=== PATIENT | male | born 1960 | race American Indian/Alaskan Native ===

== ENCOUNTER 2017-10-22 06:21 | Inpatient (IN) | payer MEDICARE, BC ==
[2017-10-22 06:28] VITALS: BMI 38.2
[2017-10-22] MEDS ORDERED: Ropivacaine 0.5% 30ML IV ONE (07:07)
[2017-10-22] MEDS ORDERED: SENSORCAINE 0.5% W/EPINEPHRINE 50ML MDV IJ ONE (07:08)
[2017-10-22] MEDS ORDERED: Rocuronium 10 mg/ml (5 ml) ONE ×2 (07:11→09:49)
[2017-10-22] MEDS ORDERED: Lidocaine 4% (Laryng-O-Jet) Kit MM ONE (07:11)
[2017-10-22] MEDS ORDERED: Succinylcholine 200 mg/10 ml Inj IV ONE (07:11)
[2017-10-22] MEDS ORDERED: Propofol 10 mg/ml Inj (20 ML) ONE ×2 (07:11→11:03)
[2017-10-22] MEDS ORDERED: Phenylephrine 10 mg/ml Inj ONE (07:11)
--- NOTE | 2017-10-22 07:24 | CP.PCM.HP ---
History of Present Illness - History of Present Illness History of Present Illness: CC: scheduled TKR HPI: This is ia 57 y/o male with MHx significant for HTN and mildly elevate cholesterol who comes in for scheduled R TKF for DJD. Denies any CP/SOB/f/c/n/v/ d. Patient has clearance on chart from PCP and cardiology. Patient has no other concerns at this time. ROS: 14 systems reviewed, negative other than HPI MHx: HTN, HLD, DJD SHx: R shoulder, R knee Allergies: NKDA Medications: As per med rec Family Hx: No relevant findings Social Hx: Lives with family, no tobacco, no EtOH Surrogate: , info on chart -- CBC, BMP, UA WNL CXR, EKG WNL Present on Admission - Present on Admission Any Indicators Present on Admission: No Past Patient History - Past Medical History & Family History Past Medical History?: Yes - Past Social History Smoking Status: Never Smoked - CARDIAC Hx Cardiac Disorders: Yes Hx Hypertension: Yes - PULMONARY Hx Respiratory Disorders: Yes Hx Sleep Apnea: Yes - NEUROLOGICAL Hx Neurological Disorder: No - HEENT Hx HEENT Problems: No - RENAL Hx Chronic Kidney Disease: No - ENDOCRINE/METABOLIC Hx Endocrine Disorders: No - HEMATOLOGICAL/ONCOLOGICAL Hx Blood Disorders: No - INTEGUMENTARY Hx Dermatological Problems: No - MUSCULOSKELETAL/RHEUMATOLOGICAL Hx Musculoskeletal Disorders: Yes Hx Back Pain: Yes Hx Osteoarthritis: Yes - GASTROINTESTINAL Hx Gastrointestinal Disorders: No - GENITOURINARY/GYNECOLOGICAL Hx Genitourinary Disorders: No - PSYCHIATRIC Hx Psychophysiologic Disorder: No - SURGICAL HISTORY Hx Surgeries: Yes Hx Arthroscopy: Yes (BILATERAL KNEE.LEFT SHOULDER) Hx Joint Replacement: Yes (TOTAL LEFT KNEE REPLACEMENT 2015) Hx Orthopedic Surgery: Yes (LEFT SHOULDER) - ANESTHESIA Hx Anesthesia: Yes Hx Anesthesia Reactions: No Hx Malignant Hyperthermia: No Has any member of the family had a problem w/ anesthesia?: No Meds Allergies/Adverse Reactions: Allergies Allergy/AdvReac Type Severity Reaction Status Date / Time No Known Allergies Allergy Verified 10/19/17 11:55 Physical Exam - Constitutional Appears: No Acute Distress - Head Exam Head Exam: ATRAUMATIC, NORMOCEPHALIC - Eye Exam Eye Exam: EOMI, PERRL - ENT Exam ENT Exam: Mucous Membranes Moist - Neck Exam Neck exam: Positive for: Full Rom - Respiratory Exam Respiratory Exam: Clear to Auscultation Bilateral, NORMAL BREATHING PATTERN - Cardiovascular Exam Cardiovascular Exam: REGULAR RHYTHM, +S1, +S2 - GI/Abdominal Exam GI & Abdominal Exam: Normal Bowel Sounds, Soft - Extremities Exam Extremities exam: Positive for: full ROM, normal inspection - Neurological Exam Neurological exam: Alert, CN II-XII Intact, Oriented x3 - Psychiatric Exam Psychiatric exam: Normal Affect, Normal Mood - Skin Skin Exam: Dry, Warm Results - Vital Signs Recent Vital Signs: Last Vital Signs Temp 98.5 F 10/22/17 06:45 Pulse 65 10/22/17 06:48 Resp 20 10/22/17 06:45 BP 129/92 H 10/22/17 06:45 Pulse Ox 97 10/22/17 06:45 Assessment & Plan (1) Aftercare following right knee joint replacement surgery Assessment and Plan: 57 y/o male here for R TKR, scheduled. 1) s/p R TKR -Routine aftercare post TKR -Pain mgmt 2) HTN -resume BP medications after surgery 3) DVT PPx -- resume when cleared by orthopedics Status: Acute (2) HTN (hypertension) Status: Acute (3) DVT prophylaxis Status: Acute
[2017-10-22] MEDS ORDERED: Absorbable Gelatin Sponge Size 100 ONE (07:26)
[2017-10-22] MEDS ORDERED: Thrombin Topical 5,000 IU Spray Kit ONE (07:26)
[2017-10-22] MEDS ORDERED: ceFAZolin IV 1 gm in Dextrose 2 GM/100 ML BAG IVPB ONE (07:26)
[2017-10-22] MEDS ORDERED: Lactated Ringer's 1,000 ML IV ONE ×2 (07:55→10:04)
[2017-10-22] MEDS ORDERED: Midazolam 2 MG/2 ML VIAL ONE (08:01)
[2017-10-22] MEDS ORDERED: ceFAZolin IV 1 gm in Dextrose 1 GM/50 ML BAG IVPB ONE (08:40)
[2017-10-22] MEDS ORDERED: Dexamethasone 4 mg/1 ml ONE (08:46)
--- NOTE | 2017-10-22 08:49 | RAD ---
PROCEDURE: Right Knee Radiographs. HISTORY: preop COMPARISON: None. FINDINGS: BONES: Normal. No fracture. JOINTS: Unremarkable. JOINT EFFUSION: None. OTHER FINDINGS: None. IMPRESSION: No demonstrated fracture or dislocation.
[2017-10-22] MEDS ORDERED: Sevoflurane - Inhalation Anesthetic Liq (250 ml) ONE (09:05)
[2017-10-22] MEDS ORDERED: ePHEDrine 50 mg/ml Inj ONE (10:39)
[2017-10-22] MEDS ORDERED: Neostigmine Methylsulfate 2 MG/2 ML ML IV ONE (11:10)
[2017-10-22] MEDS ORDERED: Neostigmine Methylsulfate 3mg/3ml Syringe IV ONE ×2 (11:10→11:42)
[2017-10-22] MEDS ORDERED: HYDROmorphone 0.5 mg/0.5 ml ISec IVP PRN (11:56)
[2017-10-22] MEDS ORDERED: Oxycodone/Acetaminophen 5/325 mg Tab PO PRN (12:24)
--- NOTE | 2017-10-22 13:32 | RAD ---
Indication: Status post right total knee replacement Comparison: Right knee radiographs performed 10/22/17 Two views, right knee Findings: The patient is status post right knee total arthroplasty. Alignment appears satisfactory. Soft tissue swelling, subcutaneous emphysema, and surgical zuly compatible with recent postoperative history Impression: Status post right arthroplasty as above.
[2017-10-22] MEDS: Sodium Chloride 0.9% 1,000 ML IV SCH ×3 (14:56→22:30)
[2017-10-22] MEDS: Lactated Ringer's 1,000 ML IV SCH ×3 (14:56→22:07)
--- NOTE | 2017-10-22 17:12 | PCM.SURG1 ---
Surgeon's Initial Post Op Note - Surgeon's Notes Surgeon: Joyce Porter Sample Case: YOLANDA Mccauley/ 2nd assist Jez Andrea Type of Anesthesia: General Endo, Spinal Anesthesia Administered By: DR Rocha Pre-Operative Diagnosis: tricomparetmental O/A R knee Operative Findings: as above. tricompartmental synovitis. posterior capsular contracture. lateral patella contracture Post-Operative Diagnosis: as above Operation Performed: R TKR. posterior capsular release. lateral patella releaSE. ANTERIOR AND POSTERIOR SYNOVECTOMY. COMPUTER NAVIGATION Specimen/Specimens Removed: cartilage synovium bone Estimated Blood Loss: EBL {In ML}: 50 Blood Products Given: N/A Drains Used: No Drains Post-Op Condition: Good Date of Surgery/Procedure: 10/22/17 Time of Surgery/Procedure: 09:10 (time in room 7:55)
--- NOTE | 2017-10-22 17:31 | PCM.ANESB3 ---
Femoral Nerve Block - Femoral Nerve Block Date of Procedure: 10/22/17 Anesthesiologist: Wilian Pre-Procedure Diagnosis: Right Knee OA Post-Procedure Diagnosis: Same Procedure Performed: Femoral Nerve Block Right - Procedure Femoral Nerve Block: The procedure was explained to the patient that it is for the post-operative pain management. Consent was obtained after a thorough discussion with the patient regarding the benefits and possible complications of local anesthetic block of the femoral nerve at the inguinal crease area. The patient was brought to the operating room and standard monitors were applied. Time-out was held with the circulating nurse to confirm the correct surgery and the appropriate block. Under general anesthesia, patient was placed in supine position with fully extended lower extremities and the ___right groin exposed. The femoral artery was then carefully palpated. The ultrasound transducer was then applied to this area in the transverse plane and the femoral nerve was visualized lateral to the femoral artery and underneath the fascia iliaca. After thorough identification, the inguinal crease area was prepped with Chloraprep. At this point, a #22 gauge Stimuplex 4-inch needle was inserted immediately lateral to the femoral artery pulse at the inguinal crease and advanced perpendicularly. The needle was inserted to the ultrasound transducer in-plane towards the femoral nerve in a [id number] direction. Needle advancement was performed carefully under direct ultrasound visualization. Nerve stimulator was used and twitch of the quadriceps muscle was obtained at current of ___0.4__ MA. After negative aspiration, __2___cc of _0.5____% ___bupivicaine with 1:200, 000 epinephrine was injected and this was followed with ___28__ _ cc of ___0.5____ % bupivicaine with 1:200,000 epinephrine . Under ultrasound guidance the local anesthetics were observed spreading below fascia iliaca and around the femoral nerve. The needle was removed intact. The patient tolerated the femoral nerve block well with stable vital signs and was prepared for subsequent surgery.
--- NOTE | 2017-10-22 17:33 | PCM.ANESB2 ---
Popliteal Nerve Block - Popliteal Nerve Block Date of Procedure: 10/22/17 Anesthesiologist: Wilian Pre-Procedure Diagnosis: Right Knee OA Post-Procedure Diagnosis: Same Procedure Performed: Popliteal Nerve Block Right - Procedure Popliteal Nerve Block: This procedure was explained to the patient that it is for post-operative pain management. Consent was obtained after a thorough discussion with the patient regarding the benefits and possible complications of local anesthetic block of the sciatic nerve at the popliteal level. The patient was brought to the operating room and standard monitors are applied. Time-out was held with the circulating nurse to confirm the correct surgery and the appropriate block. Under general anesthesia, patient's operative leg was gently raised and supported and the groove in between the biceps femoris and vastus lateralis muscles was carefully palpated. The skin approximately 8cm above the popliteal crease was then marked. The ultrasound transducer was then applied to the posterior thigh approximately 8cm above the popliteal crease in the transverse plane and the sciatic nerve before its division was visualized lateral to the popliteal artery and in between the bicep femoris and semimembranosus/ semitendinosus muscles. After identification, the lateral portion of the thigh was prepped withChlorapreo At this point, a # 21 gauge Stimuplex insulated 4 inch needle was inserted into pre-marked area and advanced in a perpendicular direction. The needle was inserted above the ultrasound transducer in-plane towards the sciatic nerve in a [id number] direction. Needle advancement was performed carefully under direct ultrasound visualization. Nerve stimulator was used and dorsiflexion of the __right___ foot was elicited at a current of MA. After repeated negative aspiration, __2___cc of __0.5___ % bupivicaine with 1:200,000 epinephrine was injected and this was flowed with __18____ cc of ___0.5_ __% ____bupivicaine with 1:200,000 epinephrine . Under ultrasound guidance the local anesthetics were observed surrounding sciatic nerve . The needle was removed intact. The patient tolerated the popliteal nerve block well with stable vital signs and was subsequently prepared for the surgery.
[2017-10-22] MEDS: ceFAZolin IV 2 gm in Dextrose 2 GM/50 ML BAG IVPB SCH (18:03)
[2017-10-23] MEDS: ceFAZolin IV 2 gm in Dextrose 2 GM/50 ML BAG IVPB SCH (00:29)
[2017-10-23] MEDS: Lactated Ringer's 1,000 ML IV SCH (05:30)
[2017-10-23 08:06] VITALS: RESP 18
--- NOTE | 2017-10-23 09:13 | CP.PCM.CON ---
History of Present Illness - History of Present Illness History of Present Illness: 57 year old male seen at bedside one day s/p right total knee replacement. Patient states that the pain in his right knee is 7/10 today. He states that he has been urinating regularly but has not had a bowel movement since his surgery. He denies any stomach pain or other symptoms of constipation. Patient states that his appetite has been good since surgery. He denies any recent N/V/F /C/CP/SOB or posterior calf pain. Pt denies any other complaints at this time. PMH: HTN Med: Norvasc 5mg PO daily All: NKDA PSH: LTKR, L shoulder replacement FH: non-contributory SH: Denies alcohol, tobacco or elicit drug use Review of Systems - Review of Systems Review of Systems: ROS unremarkable outside of HPI Past Patient History - Past Medical History & Family History Past Medical History?: Yes - Past Social History Smoking Status: Never Smoked - CARDIAC Hx Cardiac Disorders: Yes Hx Hypertension: Yes - PULMONARY Hx Respiratory Disorders: Yes Hx Sleep Apnea: Yes - NEUROLOGICAL Hx Neurological Disorder: No - HEENT Hx HEENT Problems: No - RENAL Hx Chronic Kidney Disease: No - ENDOCRINE/METABOLIC Hx Endocrine Disorders: No - HEMATOLOGICAL/ONCOLOGICAL Hx Blood Disorders: No - INTEGUMENTARY Hx Dermatological Problems: No - MUSCULOSKELETAL/RHEUMATOLOGICAL Hx Musculoskeletal Disorders: Yes Hx Back Pain: Yes Hx Osteoarthritis: Yes - GASTROINTESTINAL Hx Gastrointestinal Disorders: No - GENITOURINARY/GYNECOLOGICAL Hx Genitourinary Disorders: No - PSYCHIATRIC Hx Psychophysiologic Disorder: No - SURGICAL HISTORY Hx Surgeries: Yes Hx Arthroscopy: Yes (BILATERAL KNEE.LEFT SHOULDER) Hx Joint Replacement: Yes (TOTAL LEFT KNEE REPLACEMENT 2015) Hx Orthopedic Surgery: Yes (LEFT SHOULDER) - ANESTHESIA Hx Anesthesia: Yes Hx Anesthesia Reactions: No Hx Malignant Hyperthermia: No Has any member of the family had a problem w/ anesthesia?: No Meds Allergies/Adverse Reactions: Allergies Allergy/AdvReac Type Severity Reaction Status Date / Time No Known Allergies Allergy Verified 10/19/17 11:55 - Medications Medications: Current Medications Amlodipine Besylate (Norvasc) 5 mg PO DAILY [facility] Aspirin (Ecotrin) 81 mg PO BID [facility] Docusate Sodium (Colace) 100 mg PO BID [facility] Last Admin: 10/22/17 17:33 Dose: 100 mg Hydromorphone HCl (Dilaudid) 0.5 mg IVP Q4 PRN PRN Reason: Pain, severe (8-10) Last Admin: 10/23/17 05:34 Dose: 0.5 mg Lactated Ringer's (Lactated Ringer's) 1,000 mls @ 100 mls/hr IV .Q10H [facility] Last Admin: 10/23/17 05:30 Dose: 100 mls/hr Oxycodone/Acetaminophen (Percocet 5/325 Mg Tab) 2 tab PO Q4 PRN PRN Reason: Pain, moderate (4-7) Stop: 10/25/17 12:25 Last Admin: 10/22/17 20:57 Dose: 2 tab Physical Exam - Constitutional Appears: Well, Non-toxic, No Acute Distress - Extremities Exam Additional comments: Cap refill time to right digits normal CPM intact to right knee Denies calf pain b/l Results - Vital Signs Recent Vital Signs: Last Vital Signs Temp 98.8 F 10/23/17 08:05 Pulse 70 10/23/17 08:05 Resp 18 10/23/17 08:05 BP 118/73 10/23/17 08:05 Pulse Ox 99 10/23/17 08:05 Assessment & Plan - Assessment and Plan (Free Text) Assessment: 57 year old male seen at bedside one day s/p right total knee replacement Plan: 1. Right total knee replacement Patient received right femoral and popliteal nerve block following surgery Xray impression: Right knee arthroplasty Afebrile; incentive spirometer given Continue catheter Continue Colace 100 mg PO bid Continue [employer] pump: Dilaudid 0.5 mg IV q4 prn Continue Percocet 5/325 mg 2 tab PO q4 prn Continue PT/OT Possible DC to [facility] 2. Hypertension BP Continue Norvasc 5 mg PO daily 3. DVT Prophylaxis Denies calf pain Continue Aspirin 81 mg PO bid - Date & Time Date: 10/23/17 Time: 09:51
[2017-10-23] MEDS ORDERED: Oxycodone/Acetaminophen 5/325 mg Tab PO PRN (10:19)
[2017-10-23] MEDS ORDERED: HYDROmorphone 0.5 mg/0.5 ml ISec IVP PRN (10:19)
--- NOTE | 2017-10-23 10:22 | CP.PCM.PN ---
Subjective - Date & Time of Evaluation Date of Evaluation: 10/23/17 Time of Evaluation: 10:20 - Subjective Subjective: Patient states that he is started to be able to move his toes now. He has been using injection for pain but says helps but doesn't take away the pain. Denies CP/SOB/dizziness. Objective - Vital Signs/Intake and Output Vital Signs (last 24 hours): Temp Pulse Resp BP Pulse Ox 98.8 F 70 18 118/73 99 10/23/17 08:05 10/23/17 08:05 10/23/17 08:05 10/23/17 08:05 10/23/17 08:05 - Medications Medications: Current Medications Amlodipine Besylate (Norvasc) 5 mg PO DAILY [facility] Aspirin (Ecotrin) 81 mg PO BID [facility] Docusate Sodium (Colace) [address] [facility] Last Admin: 10/22/17 17:33 Dose: 100 mg Hydromorphone HCl (Dilaudid) 1 mg IVP Q4 PRN PRN Reason: Pain, severe (8-10) Hydromorphone HCl (Dilaudid) 0.5 mg IVP Q4 PRN PRN Reason: Pain, moderate (4-7) Lactated Ringer's (Lactated Ringer's) 1,000 mls @ 100 mls/hr IV .Q10H [facility] Last Admin: 10/23/17 05:30 Dose: 100 mls/hr Oxycodone/Acetaminophen (Percocet 5/325 Mg Tab) 2 tab PO Q4 PRN PRN Reason: Pain, Mild (1-3) Stop: 10/25/17 12:25 - Extremities Exam Additional comments: RLE" +ROM toes, more flexion, still says toes are numb (as expected from block) toes warm +DP pulse patient in NAD, knee immob intact Assessment and Plan (1) Primary osteoarthritis of right knee Assessment & Plan: POD#1 s/p right TKR -PT/OT -VTE proph with aspirin per Dr. Cook -d/c planning to rehab -f/u labs (not drawn) -d/w Dr. Cook, agrees with above Status: Acute
--- NOTE | 2017-10-23 11:10 | CP.PCM.DIS ---
Provider - Provider Date of Admission: 10/22/17 13:29 Attending physician: Loulou Mcelroy MD Primary care physician: Bebeto Cook III, MD Consults: Orthopedics: Dr. Cook Time Spent in preparation of Discharge (in minutes): 30 Hospital Course - Lab Results Lab Results: Most Recent Lab Values Blood Type A POSITIVE 10/22/17 06:40 Antibody Screen Negative 10/22/17 06:40 BBK History Checked No verified bt 10/22/17 06:40 - Hospital Course Hospital Course: 57 year old male patient with PMHx of HTN and OA right knee. Patient was originally admitted through the ED on 10/22/17 for a painful right knee and underwent a total knee replacement to that side on 10/22/17. At present he is stable and cleared by all consultants to be discharged. Patient agrees to discharge planning. Patient is to keep his postoperative dressing clean, dry and intact to right knee until his follow-up appointment with Dr. Cook. 1. Right total knee replacement Patient received right femoral and popliteal nerve block following surgery Xray impression: Right knee arthroplasty Afebrile 2. Hypertension Continue Norvasc 5 mg PO daily 3. DVT Prophylaxis Denies calf pain Continue Aspirin 81 mg PO bid - Date & Time of H&P Date of H&P: 10/23/17 Time of H&P: 11:19 Discharge Exam - Head Exam Head Exam: ATRAUMATIC, NORMAL INSPECTION, NORMOCEPHALIC - Eye Exam Eye Exam: EOMI, PERRL - ENT Exam ENT Exam: Mucous Membranes Moist, Normal Exam - Neck Exam Neck exam: Normal Inspection - Respiratory Exam Respiratory Exam: NORMAL BREATHING PATTERN, UNREMARKABLE - GI/Abdominal Exam GI & Abdominal Exam: Unremarkable - Rectal Exam Rectal Exam: Deferred - Extremities Exam Additional comments: Capillary fill time WNL to right digits Pain proportional to surgery at right knee Denies calf pain - Neurological Exam Neurological exam: Alert, Oriented x3 - Psychiatric Exam Psychiatric exam: Normal Affect, Normal Mood - Skin Skin Exam: Normal Color, Warm Discharge Plan - Follow Up Plan Condition: GOOD Disposition: TRANSF TO SNF Instructions: Knee Replacement (DC), Hypertension (DC), Hypertension (GEN) Additional Instructions: Follow up with referrals Referrals: Bebeto Cook III, MD [Primary Care Provider] -
--- NOTE | 2017-10-23 14:05 | OP ---
PROCEDURE DATE: 10/22/2017 SURGEON: Bebeto Cook MD. BLEACH LIQUOR MAKER: Diana Payton, certified registered nurse SECOND ELDER ASSISTANT: Jez Andrea. TYPE OF ANESTHESIA: General endotracheal/spinal. ANESTHESIA ADMINISTERED BY: Bear Cedeno MD. PREOPERATIVE DIAGNOSES: 1. Tricompartmental osteoarthritis of the right knee. 2. Morbid obesity. OPERATIVE FINDINGS: 1. Tricompartmental osteoarthritis of the right knee, severe with contractures. 2. Tricompartmental synovitis. 3. Posterior capsular contracture. 4. Lateral patellar contracture. 5. Loose body. POSTOPERATIVE DIAGNOSES: 1. Tricompartmental osteoarthritis of the right knee. 2. Tricompartmental synovitis. 3. Posterior capsular contracture. 4. Lateral patellar contracture. 5. Loose body. OPERATION PERFORMED: 1. Right total knee replacement arthroplasty. 2. Arthrotomy, anterior and posterior synovectomy. 3. Posterior capsular release. 4. Arthrotomy and removal of loose bodies. 5. Lateral patellar retinacular release. 6. Computer navigation. SPECIMENS REMOVED: Loose body, cartilage, synovium, and bone. ESTIMATED BLOOD LOSS: 50 mL. BLOOD PRODUCTS GIVEN: None. DRAINS: None. POSTOPERATIVE CONDITION: Stable Jaylen Reilly is a gentleman who has had a contralateral total knee replacement arthroplasty successfully, who now cannot stand the discomfort in the right knee. The patient has not undergone weight loss. He is still morbidly obese with a high BMI of approximately 38. TIME OF SURGERY: Time in the room 0755, incision time 0910. OPERATIVE INDICATIONS: Jaylen Reilly is a 57-year-old gentleman who has undergone successful contralateral left total knee replacement arthroplasty. The patient now presents with severe pain, restricted range of motion to the contralateral right knee. The patient has been refractory to conservative approach consisting of anti-inflammatory medication, activity modification, and therapy. Pros, cons, risks, and benefits of surgical approach were discussed. The possibility of mechanical failure, infection, thromboembolic disease, infection, secondary or tertiary surgery secondary to infection or mechanical failure was discussed. The patient wished the surgery to be accomplished. DESCRIPTION OF PROCEDURE: After having obtained informed consent in the above fashion; after having identified side, site, and procedure, and a critical pause/time-out; after the satisfactory induction of the anesthetic, the patient identified as Jaylen Reilly in the supine position with all bony prominences well padded. The right lower extremity is prepped and free draped in usual fashion for lower extremity surgery. The tourniquet had been applied, but was not yet inflated. After exsanguinating the limb using a 6-inch Esmarch bandage, the tourniquet, which have been applied, is inflated to 350 mmHg. The skin incision was carried down through the skin and subcutaneous tissue. Medial arthrotomy was accomplished. Patella was everted. The knee is flexed. Anterior and posterior cruciate ligaments were excised. Medial and lateral meniscectomies were accomplished. Dissection was carried around posteromedially to the direct head of the semimembranosus tendon. The tibia having been dislocated anteriorly, computer navigation commenced with the anterior strut of the KneeAlign system placed on the anterior aspect of the tibia and affixed with guide pins. The accelerometer and sensor were placed and the offset was set to the posterior aspect of the anterior cruciate ligament insertion. This having been accomplished, the knee center was accomplished, identified as well as the offset. Lateral malleolus was registered. The medial malleolus was registered. The cut was set to 0 degrees varus-valgus, 3.5 degrees posterior slope. The cut was set at 8 mm below the more prominent condyle. The tibial osteotomy was accomplished. The tibia was sized to a #5 sphere Medacta tibial component. After preparation and cutting of the tibia 2 mm below the more prominent side, the proximal tibia having been cut, guidance to rotation of the lateral aspect of the tibial condyle, mid malleolar axis, and medial third of the tibial tuberosity. The proximal tibia was punched and prepared for a stem component because of the patient's size. Attention was turned to the femur. Notch osteophytes and border osteophytes were debrided with a curved osteotome and bur. This having been accomplished, the guide pin for the computer navigation device, passive robotic device, was accomplished above the intercondylar notch. The distal cutting guide was placed. The distal cutting guide was fixed with pins. The accelerometer was placed as was the sensor. Varus-valgus was set to 0 degrees varus-valgus on the distal cut and 0.5 degrees posterior slope. This having been accomplished, the hip center was identified and registered. The offset was registered as well for the distal femoral cutting guide positioning. Again, the positioning of the cut was 0 degrees varus-valgus on the mechanical axis and 0.5 degrees of flexion. The distal cut was set to 9 mm as the girth of the distal femoral condyles of the component. The distal cut was accomplished with precision offered by an [facility] retractor, keeping the blade relatively fixed to the bony cut surface. It should be noted at this point in time, the anterior and posterior synovectomy had been accomplished to identify the anterior aspect of the femur and to eliminate inflammatory tissue. The #5 femoral component, Medacta was employed and placed across the epicondylar axis after the distal cut was accomplished. The 4-in-1 block was placed. Anterior and posterior osteotomies were accomplished as well as chamfer cuts. There was found be a definite posterior capsular contracture. Anterior and posterior synovectomy having been accomplished, the lamina medical physics professor was placed and the posterior capsule was elevated. There was found to be a posterior capsular contracture with severe osteophytes on the medial aspect. The osteophytes were debrided with a curved osteotome and the posterior capsule was released. Femoral trial was placed and the lugs were drilled. At this point in time, the femoral trochlear guide was fixed in the appropriate attitude. Reaming was accomplished. At this point in time, trialing was accomplished with a #6 femoral component, #4 tibial tray, and an 11 mm but then a 14 mm polyethylene; 14 mm polyethylene was found to have excellent flexion-extension balance. The knee attained full extension. Attention was turned to the patella. Patella girth was 33 mm. Freehand patella osteotomy was accomplished and the patella was templated to a #4 Medacta patellar component. It should be noted that the lateral patellar retinacular release at this point in time was accomplished because of a contracture of the lateral patellar retinaculum from inside out. Aquamantys was used to control the bleeding from the synovium and the lateral retinaculum. Great care was taken to spare the superior lateral genicular vessels. The patella was placed. Flexion-extension balance again found to be excellent without instability. Patella balance was found to be excellent with no evidence of luxation. Trialing having been accomplished and successful, the femur, tibia, and patella were prepared with the Pulsavac, and a #5 cemented femoral component was applied with a #5 cemented tibial tray, 14 mm polyethylene which was affixed with compression and the screws placed in the polyethylene. A #4 Medacta patellar component was cemented. Wound was thoroughly irrigated. Tourniquet was deflated. Hemostasis was controlled with the Aquamantys. Blood loss was approximately 50 mL. Closures in layers with #1 Vicryl, 0 Vicryl, 2-0 Vicryl, and zuly to skin. No Hemovac drain was employed. Michael Reilly compression dressing and knee immobilizers were applied over an Aquacel dressing. Again, postoperative flexion-extension balance was found be excellent even with the wound closed as well as with patella balance. Postoperative x-rays revealed acceptable position of the construct. It should be noted that nursing cafe assistant, Diana Payton, was essential to the completion of the procedure. Bebeto Cook MD
--- NOTE | 2017-10-23 15:18 | CP.PCM.PN ---
Subjective - Date & Time of Evaluation Date of Evaluation: 10/23/17 Time of Evaluation: 08:00 - Subjective Subjective: 57 year old male seen at bedside one day s/p right total knee replacement. Patient states that the pain in his right knee is 7/10 today. He states that he has been urinating regularly but has not had a bowel movement since his surgery. He denies any stomach pain or other symptoms of constipation. Patient states that his appetite has been good since surgery. He denies any recent N/V/F /C/CP/SOB or posterior calf pain. Pt denies any other complaints at this time. Previous plan to discharge patient today has been changed. New plan is for patient to be discharged on Thursday 10/25. PMH: HTN Med: Norvasc 5mg PO daily All: NKDA PSH: LTKR, L shoulder replacement FH: non-contributory SH: Denies alcohol, tobacco or elicit drug use Objective - Vital Signs/Intake and Output Vital Signs (last 24 hours): Temp Pulse Resp BP Pulse Ox 98.8 F 70 18 145/83 99 10/23/17 08:05 10/23/17 10:39 10/23/17 08:05 10/23/17 10:39 10/23/17 08:05 - Medications Medications: Current Medications Amlodipine Besylate (Norvasc) 5 mg PO DAILY [facility] Last Admin: 10/23/17 10:39 Dose: 5 mg Aspirin (Ecotrin) 81 mg PO BID [facility] Last Admin: 10/23/17 10:37 Dose: 81 mg Docusate Sodium (Colace) 100 mg PO BID [facility] Last Admin: 10/23/17 10:36 Dose: 100 mg Hydromorphone HCl (Dilaudid) 1 mg IVP Q4 PRN PRN Reason: Pain, severe (8-10) Hydromorphone HCl (Dilaudid) 0.5 mg IVP Q4 PRN PRN Reason: Pain, moderate (4-7) Oxycodone/Acetaminophen (Percocet 5/325 Mg Tab) 2 tab PO Q4 PRN PRN Reason: Pain, Mild (1-3) Stop: 10/25/17 12:25 Last Admin: 10/23/17 13:35 Dose: 2 tab - Constitutional Appears: Well, Non-toxic, No Acute Distress - Head Exam Head Exam: ATRAUMATIC, NORMAL INSPECTION, NORMOCEPHALIC - Eye Exam Eye Exam: EOMI, Normal appearance, PERRL Pupil Exam: NORMAL ACCOMODATION, PERRL - ENT Exam ENT Exam: Mucous Membranes Moist, Normal Exam - Neck Exam Neck Exam: Normal Inspection. absent: Tenderness - Respiratory Exam Respiratory Exam: Clear to Ausculation Bilateral. absent: Rales, Rhonchi, Wheezes - Cardiovascular Exam Cardiovascular Exam: REGULAR RHYTHM - GI/Abdominal Exam GI & Abdominal Exam: Normal Bowel Sounds. absent: Distended, Guarding, Rigid, Tenderness - Rectal Exam Rectal Exam: Deferred - Extremities Exam Extremities Exam: Normal Capillary Refill Additional comments: Pain appropriate for postoperative state appreciated - Neurological Exam Neurological Exam: Alert, Awake, Oriented x3 - Psychiatric Exam Psychiatric exam: Normal Affect, Normal Mood - Skin Skin Exam: Intact, Normal Color, Warm Assessment and Plan - Assessment and Plan (Free Text) Assessment: 57 year old male seen at bedside one day s/p right total knee replacement Plan: 1. Right total knee replacement Patient received right femoral and popliteal nerve block following surgery Xray impression: Right knee arthroplasty Afebrile; incentive spirometer given Continue catheter Continue Colace 100 mg PO bid Continue TRAUMA COORDINATOR pump: Dilaudid 0.5 mg IV q4 prn Continue Percocet 5/325 mg 2 tab PO q4 prn Continue PT/OT Possible DC to [facility] 2. Hypertension BP 11/73 Continue Norvasc 5 mg PO daily 3. DVT Prophylaxis Denies calf pain Continue Aspirin 81 mg PO bid
[2017-10-23 16:05] VITALS: BP 125/77; PULSE 75; TEMP 99.1; O2SAT 98
== END 2017-10-23 20:07 | DRG 470 ==
LOC: H.OPSURG 06:21 → H.MEDSURG1 13:29
PROVIDERS: ADMIT Internal Medicine; ATTEND Internal Medicine
PROC: 0SRC0J9 Replacement of Right Knee Joint with Synthetic Substitute, Cemented, Open Approach (ICD-10-PCS; principal; 2017-10-22 07:45)
PROC: 0SBC0ZZ Excision of Right Knee Joint, Open Approach (ICD-10-PCS; 2017-10-22 07:45)
PROC: 3E0T3BZ Introduction of Anesthetic Agent into Peripheral Nerves and Plexi, Percutaneous Approach (ICD-10-PCS; 2017-10-22 07:45)
DX: M17.11 Unilateral primary osteoarthritis, right knee (principal); E66.01 Morbid (severe) obesity due to excess calories; M54.9 Dorsalgia, unspecified; M65.9 Synovitis and tenosynovitis, unspecified; Z79.899 Other long term (current) drug therapy; Z96.652 Presence of left artificial knee joint; G47.30 Sleep apnea, unspecified; I10 Essential (primary) hypertension

== ENCOUNTER 2018-09-27 06:06 | Inpatient (IN) | payer MEDICARE, BC ==
[2018-09-21 14:15] VITALS: BMI 39.0
--- NOTE | 2018-09-27 06:51 | CP.PCM.HP ---
History of Present Illness - History of Present Illness History of Present Illness: Orthopedist: Dr Cook Chief Complaint: Left shoulder pain The patient was seen and examinede in the SDS Unit HPI: This is a 58 years old male with hx of HTN, Sleep apnea and Osteoarthritis with left shoulder pain. He had a left rotator cuff repair years ago. At present he considers that the left shoulder has failed conservative management and he has decided on a surgical treatment. No complaints of SOB, Chest pain, Palpitation, cough dysuria nor diarrhea. PMH: HTN; Sleep Apnea; Left shoulder Osteoarhritis with DJD PSH: Left shoulder rotator cuff repair; Bilateral Total knee replacement SH: Never smoked, No alcohol; No illegal drug use; Live with the family FH: State: No known family hx Allergids: NKDA Medication: Reviewed Surrogate: , info on chart Present on Admission - Present on Admission Any Indicators Present on Admission: No History of DVT/PE: No History of Uncontrolled Diabetes: No Urinary Catheter: No Decubitus Ulcer Present: No Review of Systems - Constitutional Constitutional: absent: Anorexia, Chills, Fever, Lethargy - EENT Eyes: absent: Blurred Vision, Floaters, Requires Corrective Lenses Ears: absent: Decreased Hearing, Ear Discharge, Tinnitus Nose/Mouth/Throat: absent: Epistaxis, Nasal Congestion, Nasal Discharge, Sinus Pain, Sinus Pressure - Cardiovascular Cardiovascular: absent: Chest Pain, Dyspnea, Edema - Respiratory Respiratory: absent: Cough, Dyspnea, Wheezing, Stridor - Gastrointestinal Gastrointestinal: absent: Abdominal Pain, Constipation, Diarrhea, Nausea, Vomiting - Genitourinary Genitourinary: absent: Dysuria, Flank Pain, Urinary Frequency - Musculoskeletal Musculoskeletal: Arthralgias. absent: Joint Swelling, Muscle Weakness - Integumentary Integumentary: absent: Pruritus, Rash, Skin Ulcer, Sores, Swelling - Neurological Neurological: absent: Confusion, Dizziness, Weakness - Psychiatric Psychiatric: absent: Anxiety, Depression - Endocrine Endocrine: absent: Palpitations, Polydipsia, Polyphagia, Polyuria - Hematologic/Lymphatic Hematologic: absent: Easy Bleeding, Easy Bruising Past Patient History - Past Medical History & Family History Past Medical History?: Yes - Past Social History Smoking Status: Never Smoked Chewing Tobacco Use: No Cigar Use: No Alcohol: None Drugs: Denies Home Situation {Lives}: With Family - CARDIAC Hx Cardiac Disorders: Yes Hx Hypertension: Yes - PULMONARY Hx Respiratory Disorders: Yes Hx Sleep Apnea: Yes - NEUROLOGICAL Hx Neurological Disorder: No - HEENT Hx HEENT Problems: No - RENAL Hx Chronic Kidney Disease: No - ENDOCRINE/METABOLIC Hx Endocrine Disorders: No - HEMATOLOGICAL/ONCOLOGICAL Hx Blood Disorders: No - INTEGUMENTARY Hx Dermatological Problems: No - MUSCULOSKELETAL/RHEUMATOLOGICAL Hx Musculoskeletal Disorders: Yes Hx Back Pain: Yes Hx Osteoarthritis: Yes - GASTROINTESTINAL Hx Gastrointestinal Disorders: No - GENITOURINARY/GYNECOLOGICAL Hx Genitourinary Disorders: No - PSYCHIATRIC Hx Psychophysiologic Disorder: No - SURGICAL HISTORY Hx Surgeries: Yes Hx Arthroscopy: Yes (BILATERAL KNEE.LEFT SHOULDER) Hx Joint Replacement: Yes (TOTAL LEFT KNEE REPLACEMENT 2015) Hx Orthopedic Surgery: Yes (LEFT SHOULDER) - ANESTHESIA Hx Anesthesia: Yes Hx Anesthesia Reactions: No Hx Malignant Hyperthermia: No Meds Allergies/Adverse Reactions: Allergies Allergy/AdvReac Type Severity Reaction Status Date / Time No Known Allergies Allergy Verified 10/19/17 11:55 Physical Exam - Constitutional Appears: No Acute Distress - Head Exam Head Exam: ATRAUMATIC, NORMAL INSPECTION, NORMOCEPHALIC - Eye Exam Eye Exam: EOMI, Normal appearance Pupil Exam: NORMAL ACCOMODATION, PERRL - ENT Exam ENT Exam: Mucous Membranes Moist, Normal Exam, Normal External Ear Exam - Neck Exam Neck exam: Positive for: Full Rom, Normal Inspection. Negative for: Lymphadenopathy, Tenderness - Respiratory Exam Respiratory Exam: Clear to Auscultation Bilateral. absent: Rales, Rhonchi, Wheezes - Cardiovascular Exam Cardiovascular Exam: REGULAR RHYTHM, RRR, +S1, +S2. absent: Gallop - GI/Abdominal Exam GI & Abdominal Exam: Normal Bowel Sounds, Soft. absent: Mass, Organomegaly - Rectal Exam Rectal Exam: Deferred - Extremities Exam Extremities exam: Positive for: normal inspection. Negative for: pedal edema Additional comments: Left shoulder tender on full flexion - Back Exam Back exam: NORMAL INSPECTION. absent: CVA tenderness (L), CVA tenderness (R) - Neurological Exam Neurological exam: Alert, CN II-XII Intact, Oriented x3, Reflexes Normal - Psychiatric Exam Psychiatric exam: Normal Affect, Normal Mood - Skin Skin Exam: Dry, Normal Color, Warm Results - Vital Signs Recent Vital Signs: Last Vital Signs Temp 98 F 09/27/18 06:40 Pulse 62 09/27/18 06:43 Resp 20 09/27/18 06:40 BP 143/95 H 09/27/18 06:40 Pulse Ox 96 09/27/18 06:40 - Labs Result Diagrams: 09/27/18 07:25 Assessment & Plan - Assessment and Plan (Free Text) Plan: 58 years old male with hx of HTN, Sleep apnea and Osteoarthritis with left shou lder pain. He had a left rotator cuff repair years ago. At present he considers that the left shoulder has failed conservative management and he has decided on a surgical treatment. No complaints of SOB, Chest pain, Palpitation, cough dysuria nor diarrhea. #. Left Shoulder Osteoarthritis - Consult Dr Cook The Orthopedist - Orthopedic management - Pain management - PT/OT #. HTN - Amlodipine - Monitor blood Pressure #. DVT prophylaxis with Lovenox from 09/28/18 #. Code Status: Full The patient was cleared for surgery by his PMD After the History and Physical and review of the medical records I clear this patient for surgery with mild to moderate cardiac risks. Sekou Cary MD - Date & Time Date: 09/27/18 Time: 06:51
[2018-09-27] MEDS ORDERED: Lactated Ringer's 1,000 ML IV ONE ×2 (07:25→09:26)
[2018-09-27 07:35] LABS: BASO % 0.6 % (0.0-2.0); EOS # 0.2 K/uL (0.0-0.7); EOS % 3.3 % (0.0-4.0); HEMOGLOBIN 12.3 g/dL (12.0-18.0); LYMPH # 1.2 K/uL (1.0-4.3); LYMPH % 22.7 % (20.0-40.0); MEAN CORPUSCULAR HEMOGLOBIN 27.1 pg (27.0-31.0); MEAN CORPUSCULAR HGB CONC 31.9 g/dL (33.0-37.0); MEAN PLATELET VOLUME 8.4 fl (7.2-11.7); MONO # 0.5 K/uL (0.0-0.8); MONO % 10.4 % (0.0-10.0); NEUT # 3.2 K/uL (1.8-7.0); RBC 4.52 Mil/uL (4.40-5.90); RED CELL DISTRIBUTION WIDTH 13.9 % (11.5-14.5); WHITE BLOOD COUNT 5.1 K/uL (4.8-10.8)
--- NOTE | 2018-09-27 07:37 | CP.PCM.CON ---
History of Present Illness - History of Present Illness History of Present Illness: Orthopedic consult: Dr. Cook Patient is a 58 y/o RHD male with PMH of HTN and sleep apnea who presents for elective L TSR today. The patient has had chronic L shoulder pain for many years which has progressively worsened. The pain has hindering his daily activities including overhead reaching and lifting. The pain is dull, intermittent but daily. He has had a rotator cuff repair performed by Dr. Cook in the past. He denies any radiation of pain/numbness/tingling. He also denies CP/SOB/N/V/D/fever/dysuria/melena. Review of Systems - Review of Systems All systems: reviewed and no additional remarkable complaints except Review of Systems: as per HPI Past Patient History - Past Medical History & Family History Past Medical History?: Yes Past Family History: Reviewed and not pertinent - Past Social History Smoking Status: Never Smoked Alcohol: None Drugs: Denies - CARDIAC Hx Cardiac Disorders: Yes Hx Hypertension: Yes - PULMONARY Hx Respiratory Disorders: Yes Hx Sleep Apnea: Yes - NEUROLOGICAL Hx Neurological Disorder: No - HEENT Hx HEENT Problems: No - RENAL Hx Chronic Kidney Disease: No - ENDOCRINE/METABOLIC Hx Endocrine Disorders: No - HEMATOLOGICAL/ONCOLOGICAL Hx Blood Disorders: No - INTEGUMENTARY Hx Dermatological Problems: No - MUSCULOSKELETAL/RHEUMATOLOGICAL Hx Musculoskeletal Disorders: Yes Hx Back Pain: Yes Hx Osteoarthritis: Yes - GASTROINTESTINAL Hx Gastrointestinal Disorders: No - GENITOURINARY/GYNECOLOGICAL Hx Genitourinary Disorders: No - PSYCHIATRIC Hx Psychophysiologic Disorder: No - SURGICAL HISTORY Hx Surgeries: Yes Hx Arthroscopy: Yes (BILATERAL KNEE.LEFT SHOULDER) Hx Joint Replacement: Yes (TOTAL LEFT KNEE REPLACEMENT 2015) Hx Orthopedic Surgery: Yes (LEFT SHOULDER) - ANESTHESIA Hx Anesthesia: Yes Hx Anesthesia Reactions: No Hx Malignant Hyperthermia: No Meds Allergies/Adverse Reactions: Allergies Allergy/AdvReac Type Severity Reaction Status Date / Time No Known Allergies Allergy Verified 10/19/17 11:55 - Medications Medications: Norvasc Physical Exam - Constitutional Appears: Well, No Acute Distress - Head Exam Head Exam: ATRAUMATIC, NORMOCEPHALIC - Eye Exam Eye Exam: EOMI, Normal appearance, PERRL - ENT Exam ENT Exam: Mucous Membranes Moist - Respiratory Exam Respiratory Exam: Clear to Auscultation Bilateral, NORMAL BREATHING PATTERN - Cardiovascular Exam Cardiovascular Exam: +S1, +S2 - GI/Abdominal Exam GI & Abdominal Exam: Soft. absent: Tenderness - Extremities Exam Additional comments: L shoulder: No swelling, no erythema, no masses old arthroscopic and saber incision well healed ROM limited 2nd to pain sensation and motor intact AXN/MN/UN/RN radial pulse intact Results - Vital Signs Recent Vital Signs: Last Vital Signs Temp 98 F 09/27/18 06:40 Pulse 62 09/27/18 06:43 Resp 20 09/27/18 06:40 BP 143/95 H 09/27/18 06:40 Pulse Ox 96 09/27/18 06:40 Assessment & Plan (1) Primary osteoarthritis, left shoulder Assessment and Plan: -OR today for L TSR with Dr. Cook -NPO -Admit to Hospitalist -Risks/benefits/alteranatives explained to patient who understands and agrees to proceed with procedure above -Above d/w Dr. Cook in agreement Status: Acute
[2018-09-27] MEDS ORDERED: Propofol 10 mg/ml Inj (20 ML) ONE (07:46)
[2018-09-27] MEDS ORDERED: Rocuronium 10 mg/ml (5 ml) ONE ×2 (07:46→09:16)
[2018-09-27] MEDS ORDERED: Succinylcholine 200 mg/10 ml Inj IV ONE (07:46)
[2018-09-27] MEDS ORDERED: Etomidate 20 mg/10ml Inj IV ONE (07:47)
[2018-09-27] MEDS ORDERED: Bupivacaine HCl 0.5% PF (30 ml) Inj ONE (07:50)
[2018-09-27] MEDS ORDERED: EPINEPHrine 1 mg/ml (1:1000) Inj ONE ×2 (07:50→08:44)
[2018-09-27] MEDS ORDERED: Lidocaine 2% MPF (5 ml) Inj ONE (07:54)
[2018-09-27] MEDS ORDERED: Dexamethasone 4 mg/1 ml ONE (07:54)
[2018-09-27] MEDS ORDERED: Midazolam 2 MG/2 ML VIAL ONE (08:13)
[2018-09-27] MEDS ORDERED: EPINEPHrine 1 mg/ml (1:1000) Inj IV ONE (08:34)
[2018-09-27] MEDS ORDERED: Sevoflurane - Inhalation Anesthetic Liq (250 ml) ONE (09:54)
[2018-09-27] MEDS ORDERED: ePHEDrine 50 mg/ml Inj ONE (10:04)
[2018-09-27] MEDS ORDERED: Neostigmine 1:1000 (1 mg/ml) Inj ONE (11:36)
[2018-09-27] MEDS ORDERED: HYDROmorphone 0.5 mg/0.5 ml ISec IVP PRN (12:16)
--- NOTE | 2018-09-27 12:21 | PCM.ANESB1 ---
Interscalene Block - Brachial Plexus Date of Procedure: 09/27/18 Anesthesiologist: Wilian Pre-Procedure Diagnosis: Left Shoulder OA Post-Procedure Diagnosis: Same Procedure Performed: Interscalene Block of Brachial Plexus Left - Procedure Interscalene Block of Brachial Plexus: This procedure was explained to the patient that it is for post-operative pain management. Consent was obtained after a thorough discussion with the patient regarding the benefits and possible complications of local anesthetic block of the Brachial Plexus at the Interscalene area. The patient was brought to the Operating Room and standard monitors were applied. Time out was held with the circulating nurse to confirm the correct surgery and appropriate block. After applying Oxygen by nasal cannula and administering IV Sedation, the patient's head was gently rotated away from the __left____operative shoulder and the anterior scalene groove was carefully palpated. The ultrasound transducer was then applied to the skin in the transverse plane and the brachial plexus was visualized lateral to the carotid artery and in between the anterior and middle scalene muscles. After identification,the anterior lateral portion of the neck was prepped with Chloraprep and Lidocaine 1% was injected subcutaneously for topical analgesia. At this point, a # 22 gauge Stimuplex 2 inches insulated needle was inserted into the interscalene groove and directed in a caudal and midline direction. The needle was inserted lateral to the ultrasound transducer in-plane towards the brachial plexus in a [id number] direction. Needle advancement was performed carefully under direct ultrasound visualization. Nerve stimulator was used and twitched of the affected extremity including the hand brachialis muscles, biceps and the deltoid was obtained at a current of __0.4___MA. After repeated negative aspiration,__2___cc of_0.5%____, bupivacaine with 1:200,000 epinephrine were injected and this was followed with _28____cc of __0.5___% ___bupivacaine with 1:200,000 epinephrine . Under ultrasound guidance the local anesthetics were observed surrounding the roots of the brachial plexus. The needle was removed intact. The patient had stable vital signs, was conscious and in no apparent distress. The patient tolerated the interscalene block of the bracheal plexus well with stable vital signs and was prepared for subsequent surgery.
[2018-09-27] MEDS ORDERED: Oxycodone/Acetaminophen 5/325 mg Tab PO PRN (12:36)
[2018-09-27] MEDS: Lactated Ringer's 1,000 ML IV SCH (12:36)
[2018-09-27] MEDS ORDERED: Sodium Chloride 0.9% 1,000 ML IV SCH (12:45)
--- NOTE | 2018-09-27 12:57 | PCM.SURG1 ---
Surgeon's Initial Post Op Note - Surgeon's Notes Surgeon: Shiv Cook MD Staff Counsel: Nikolas Lee PA-C Type of Anesthesia: General Endo Anesthesia Administered By: Dr. Cedeno Pre-Operative Diagnosis: Left shoulder DJD Operative Findings: same Post-Operative Diagnosis: same Operation Performed: 1. Left reverse total shoulder replacement. 2. Rotator cuff repair, open. 3. Biceps tenodesis Specimen/Specimens Removed: humeral head Estimated Blood Loss: EBL {In ML}: 120 Blood Products Given: N/A Drains Used: No Drains Post-Op Condition: Fair Date of Surgery/Procedure: 09/27/18 Time of Surgery/Procedure: 12:57
--- NOTE | 2018-09-27 14:12 | RAD ---
Date of service: 09/27/2018 PROCEDURE: Radiographs of the Left Shoulder HISTORY: pt in pacu s/p total shoulder COMPARISON: No prior. FINDINGS: BONES: Patient status post left shoulder arthroplasty with proximal humeral as well as glenoid prosthetic components identified in position. Skin zuly noted superolaterally limited postoperative soft tissue changes are related. Bony loss of the distal segment of the left clavicle is identified, likely on a chronic basis. JOINTS: As above. SOFT TISSUES: As above. OTHER FINDINGS: None. IMPRESSION: Status post left shoulder arthroplasty. No definite dislocation or acute fracture appreciated.
[2018-09-27] MEDS: ceFAZolin 2 GM in Sodium Chloride 0.9% 100 ML IVPB SCH ×2 (16:43→23:46)
[2018-09-27 18:42] VITALS: RESP 19
--- NOTE | 2018-09-27 19:54 | CP.PCM.PCO ---
Assessment/Plan - Assessment and Plan (Free Text) Assessment: S: Patient seen and examined s/p surgery, POD#0, s/p left shoulder replacement. Patient denies any pain, tolerating PO diet, voiding freely, has not ambulated yet. denies any chest pain, SOB, dizziness, abdominal pain or urinary symptoms. O: VS reviewed, Afebrile PE: AAOx3, upright on bed, NAD, CV: RRR, Pulm: CTBL, Left UE in shoulder immobilizer, moving his fingers w/o pain A/P: 58 y/o male, POD#0, s/p left shoulder replacement - C/w pain management - Encourage PO intake, ambulation - Follow up ortho recommendation - C/w Abx, next, 2nd dose at midnight - Incentive spirometer - DVT ppx - Possible discharge after Abx --- Uyen Alcocer, PGY- II
[2018-09-28 00:53] VITALS: O2SAT 96
[2018-09-28 08:00] VITALS: BP 112/77; PULSE 81; TEMP 98.1
--- NOTE | 2018-09-28 08:03 | CP.PCM.PN ---
Subjective - Date & Time of Evaluation Date of Evaluation: 09/28/18 Time of Evaluation: 07:30 - Subjective Subjective: Patient seen and examined at bedside comfortable. Pain is well controlled. No acute events overnight. Denies CP/SOB/fever/CASANOVA. Objective - Vital Signs/Intake and Output Vital Signs (last 24 hours): Temp Pulse Resp BP Pulse Ox 98.1 F 81 19 112/77 96 09/28/18 08:00 09/28/18 08:00 09/28/18 08:00 09/28/18 08:00 09/28/18 08:00 - Medications Medications: Current Medications Amlodipine Besylate (Norvasc) 5 mg PO DAILY [facility] Docusate Sodium (Colace) 100 mg PO BID [facility] Last Admin: 09/27/18 16:43 Dose: 100 mg Hydralazine HCl (Apresoline) 5 mg IV Q15MIN PRN PRN Reason: Hypertension Hydromorphone HCl (Dilaudid) 1 mg IVP Q4 PRN PRN Reason: Pain, severe (8-10) Lactated Ringer's (Lactated Ringer's) 1,000 mls @ 100 mls/hr IV .Q10H [facility] Last Admin: 09/27/18 12:36 Dose: 50 mls Sodium Chloride (Sodium Chloride 0.9%) 1,000 mls @ 100 mls/hr IV .Q10H [facility] Stop: 09/28/18 08:44 Last Admin: 09/27/18 23:46 Dose: 100 mls/hr Oxycodone/Acetaminophen (Percocet 5/325 Mg Tab) 2 tab PO Q4 PRN PRN Reason: Pain, severe (8-10) Stop: 09/30/18 12:37 Last Admin: 09/28/18 05:09 Dose: 2 tab - Labs Labs: 09/27/18 07:25 - Extremities Exam Additional comments: L shoulder: mild swelling and tenderness 2nd to surgery aquacel dressings CDI shoulder immobilizer in place sensation and motor intact AXN/MN/UN/RN radial pulse intact comps soft NT Assessment and Plan (1) Primary osteoarthritis, left shoulder Assessment & Plan: POD# 1 s/p L reverse TSR doing well -PT/OT NWB LUE -pain control -no DVT ppx needed -keep in shoulder immobilizer -dressings changed -orthopedically stable for discharge home today -f/u in office with 7-10 days -above d/w Dr. Cook in agreement Status: Acute
[2018-09-28 08:14] LABS: HEMOGLOBIN 10.9 g/dL (12.0-18.0); MEAN CORPUSCULAR HEMOGLOBIN 27.6 pg (27.0-31.0); MEAN CORPUSCULAR HGB CONC 31.7 g/dL (33.0-37.0); RBC 3.94 Mil/uL (4.40-5.90); RED CELL DISTRIBUTION WIDTH 13.8 % (11.5-14.5); WHITE BLOOD COUNT 9.9 K/uL (4.8-10.8)
[2018-09-28 08:26] LABS: BLOOD UREA NITROGEN 18 mg/dl (9-20); CALCIUM 8.7 mg/dL (8.4-10.2); GFR NON-AFRICAN AMERICAN > 60
[2018-09-28] MEDS ORDERED: Enoxaparin 40 mg Syringe SC SCH (09:00)
[2018-09-28] MEDS: Lactated Ringer's 1,000 ML IV SCH (09:24)
--- NOTE | 2018-09-28 10:19 | CP.PCM.DIS ---
<Acosta Abernathy - Last Filed: 09/28/18 13:57> Provider - Provider Date of Admission: 09/27/18 08:06 Attending physician: Sekou Cary Primary care physician: Bebeto Cook III, MD Time Spent in preparation of Discharge (in minutes): 30 Diagnosis - Discharge Diagnosis (1) Primary osteoarthritis, left shoulder Status: Acute Hospital Course - Lab Results Lab Results: Most Recent Lab Values WBC 9.9 K/uL (4.8-10.8) D 09/28/18 08:01 RBC 3.94 Mil/uL (4.40-5.90) L 09/28/18 08:01 Hgb 10.9 g/dL (12.0-18.0) L 09/28/18 08:01 Hct 34.3 % (35.0-51.0) L 09/28/18 08:01 MCV 87.0 fl (80.0-94.0) D 09/28/18 08:01 MCH 27.6 pg (27.0-31.0) 09/28/18 08:01 MCHC 31.7 g/dL (33.0-37.0) L 09/28/18 08:01 RDW 13.8 % (11.5-14.5) 09/28/18 08:01 Plt Count 200 K/uL (130-400) 09/28/18 08:01 MPV 8.4 fl (7.2-11.7) 09/27/18 07:25 Neut % (Auto) 63.0 % (50.0-75.0) 09/27/18 07:25 Lymph % (Auto) 22.7 % (20.0-40.0) 09/27/18 07:25 Reynolds % (Auto) 10.4 % (0.0-10.0) H 09/27/18 07:25 Eos % (Auto) 3.3 % (0.0-4.0) 09/27/18 07:25 Baso % (Auto) 0.6 % (0.0-2.0) 09/27/18 07:25 Neut # (Auto) 3.2 K/uL (1.8-7.0) 09/27/18 07:25 Lymph # (Auto) 1.2 K/uL (1.0-4.3) 09/27/18 07:25 Reynolds # (Auto) 0.5 K/uL (0.0-0.8) 09/27/18 07:25 Eos # (Auto) 0.2 K/uL (0.0-0.7) 09/27/18 07:25 Baso # (Auto) 0.0 K/uL (0.0-0.2) 09/27/18 07:25 Sodium 139 mmol/l (132-148) 09/28/18 08:01 Potassium 4.5 MMOL/L (3.6-5.0) 09/28/18 08:01 Chloride 105 mmol/L (98-107) 09/28/18 08:01 Carbon Dioxide 28 mmol/L (22-30) 09/28/18 08:01 Anion Gap 11 (10-20) 09/28/18 08:01 BUN 18 mg/dl (9-20) 09/28/18 08:01 Creatinine 1.1 mg/dl (0.8-1.5) 09/28/18 08:01 Est GFR ( Amer) > 60 09/28/18 08:01 Est GFR (Non-Af Amer) > 60 09/28/18 08:01 Random Glucose 121 mg/dL (75-110) H 09/28/18 08:01 Calcium 8.7 mg/dL (8.4-10.2) 09/28/18 08:01 Blood Type A POSITIVE 09/27/18 07:25 Antibody Screen Negative 09/27/18 07:25 Crossmatch See Detail 09/27/18 07:25 BBK History Checked Patient has bt 09/27/18 07:25 - Hospital Course Hospital Course: 58 y/o male with history of left shoulder osteoarthritis admitted for total left shoulder repair. Pt under went repair on 09/28/2018 and tolerated well. No acute events overnight. Pain controlled. Evaluated by PT. After an uneventful hospital stay the pt was discharged in stable condition. Discharge Exam - Head Exam Head Exam: ATRAUMATIC, NORMAL INSPECTION, NORMOCEPHALIC - Eye Exam Eye Exam: EOMI, PERRL - ENT Exam ENT Exam: Mucous Membranes Moist - Neck Exam Neck exam: Full Rom - Respiratory Exam Respiratory Exam: Clear to PA & Lateral, NORMAL BREATHING PATTERN, UNREMARKABLE. absent: Rales, Rhonchi, Wheezes - Cardiovascular Exam Cardiovascular Exam: REGULAR RHYTHM, RRR, +S1, +S2. absent: JVD, Rubs, Systolic Murmur - GI/Abdominal Exam GI & Abdominal Exam: Normal Bowel Sounds, Unremarkable - Extremities Exam Extremities exam: normal inspection Additional comments: LUE: s/p total shoulder repair, incision site C/D/I. - Neurological Exam Neurological exam: Alert, CN II-XII Intact, Normal Gait, Oriented x3 - Psychiatric Exam Psychiatric exam: Normal Affect, Normal Mood Discharge Plan - Follow Up Plan Condition: GOOD Disposition: HOME/ ROUTINE Instructions: Shoulder Replacement (DC), Docusate, Ibuprofen, Oxycodone and Acetaminophen, Weight-Bearing Restrictions Additional Instructions: follow up with Dr Cook 5-7 days Referrals: Bebeto Cook III, MD [Primary Care Provider] - <Guillermina Espinosa - Last Filed: 09/28/18 16:04> Provider - Provider Date of Admission: 09/27/18 08:06 Attending physician: Sekou Cary Primary care physician: Bebeto oCok III, MD Hospital Course - Lab Results Lab Results: Most Recent Lab Values WBC 9.9 K/uL (4.8-10.8) D 09/28/18 08:01 RBC 3.94 Mil/uL (4.40-5.90) L 09/28/18 08:01 Hgb 10.9 g/dL (12.0-18.0) L 09/28/18 08:01 Hct 34.3 % (35.0-51.0) L 09/28/18 08:01 MCV 87.0 fl (80.0-94.0) D 09/28/18 08:01 MCH 27.6 pg (27.0-31.0) 09/28/18 08:01 MCHC 31.7 g/dL (33.0-37.0) L 09/28/18 08:01 RDW 13.8 % (11.5-14.5) 09/28/18 08:01 Plt Count 200 K/uL (130-400) 09/28/18 08:01 MPV 8.4 fl (7.2-11.7) 09/27/18 07:25 Neut % (Auto) 63.0 % (50.0-75.0) 09/27/18 07:25 Lymph % (Auto) 22.7 % (20.0-40.0) 09/27/18 07:25 Reynolds % (Auto) 10.4 % (0.0-10.0) H 09/27/18 07:25 Eos % (Auto) 3.3 % (0.0-4.0) 09/27/18 07:25 Baso % (Auto) 0.6 % (0.0-2.0) 09/27/18 07:25 Neut # (Auto) 3.2 K/uL (1.8-7.0) 09/27/18 07:25 Lymph # (Auto) 1.2 K/uL (1.0-4.3) 09/27/18 07:25 Reynolds # (Auto) 0.5 K/uL (0.0-0.8) 09/27/18 07:25 Eos # (Auto) 0.2 K/uL (0.0-0.7) 09/27/18 07:25 Baso # (Auto) 0.0 K/uL (0.0-0.2) 09/27/18 07:25 Sodium 139 mmol/l (132-148) 09/28/18 08:01 Potassium 4.5 MMOL/L (3.6-5.0) 09/28/18 08:01 Chloride 105 mmol/L (98-107) 09/28/18 08:01 Carbon Dioxide 28 mmol/L (22-30) 09/28/18 08:01 Anion Gap 11 (10-20) 09/28/18 08:01 BUN 18 mg/dl (9-20) 09/28/18 08:01 Creatinine 1.1 mg/dl (0.8-1.5) 09/28/18 08:01 Est GFR ( Amer) > 60 09/28/18 08:01 Est GFR (Non-Af Amer) > 60 09/28/18 08:01 Random Glucose 121 mg/dL (75-110) H 09/28/18 08:01 Calcium 8.7 mg/dL (8.4-10.2) 09/28/18 08:01 Blood Type A POSITIVE 09/27/18: Antibody Screen Negative 09/27/18:25 Crossmatch See Detail 09/27/18 07:25 BBK History Checked Patient has bt 09/27/18 07:25 Attending/Attestation - Attestation I have personally seen and examined this patient.: Yes I have fully participated in the care of the patient.: Yes I have reviewed all pertinent clinical information, including history, physical exam and plan: Yes Notes (Text): 09/28/18 16:04 Seen examined and discussed with resident. Agree with findings and plan as above.
--- NOTE | 2018-09-29 17:18 | OP ---
PROCEDURE DATE: 09/27/2018 PREOPERATIVE DIAGNOSIS: Rotator cuff arthropathy of the left shoulder. POSTOPERATIVE DIAGNOSIS: Rotator cuff arthropathy of the left shoulder. PROCEDURES PERFORMED: 1. Left total shoulder replacement arthroplasty, reverse type. 2. Repair of rotator cuff, open. 3. Biceps tenodesis. ANESTHESIA: General endotracheal anesthesia with scalene block, Dr. Bear Cedeno. SURGEON: Bebeto Cook MD ELECTRICAL APPLIANCE REPAIRER: Golden De Guzman PA-C SECOND DISEASE MANAGEMENT NURSE: NANETTE Flowers, certified registered nursing field research assistant. SPECIMENS REMOVED: Synovium and humeral head. BLOOD LOSS: 120 mL. BLOOD PRODUCTS: No blood products given. DRAINS: No drains. POSTOPERATIVE CONDITION: Stable. TIME OF SURGERY: 12:57. OPERATIVE INDICATION: Jaylen Reilly is a 58-year-old gentleman, who presents with severe pain and restricted range of motion of the shoulder. Approximately 12 to 14 years ago, the patient underwent an open rotator cuff repair. The patient has had increasing pain and restrictive range of motion of the left shoulder since. Pros, cons, risks and benefits of surgical approach were discussed. Possibility of mechanical failure, infection, thromboembolic disease, secondary or tertiary surgery was discussed. OPERATIVE PROCEDURE: After having obtained informed consent, after having identified side, site and procedure and a critical pause/time-out, after the satisfactory induction of the anesthetic, the patient identified as Jaylen Reilly, placed in modified Bar chair position, the left upper extremity was prepped and free draped in the usual fashion for upper extremity surgery. The cervical spine was centralized. All bony prominences were well padded. Left upper extremity was placed in the shoulder positioner. The topographic anatomy of the shoulder was marked. This having been accomplished, an incision was described from the distal third of the clavicle to the point of the deltoid insertion. The skin incision was infiltrated with solution of 1:1000 epinephrine in 200 mL of saline, approximately 15 mL. The skin incision was carried down through the skin and subcutaneous tissue. The deltopectoral interval was identified with the shoulder in external rotation. The strap muscles were identified as well. The deltopectoral interval having been identified with the arm in external rotation, an incision was accomplished approximately 1 cm medial to the greater tuberosity. The biceps tenodesis is initiated with resection of the attenuated biceps tendon. The rotator cuff was elevated from the humeral head. There was found to be marked arthritic change. The lower subscapular vessels were controlled with the Aquamantys. This having been accomplished with external rotation, the proximal humerus was identified. The proximal humeral osteotomy was accomplished. Intramedullary guide was accomplished and freehand proximal humeral osteotomy was accomplished. This having been accomplished, the rotator cuff tendon was tagged. The biceps tendon was tagged as well. The exposure of the humerus was accomplished to allow humeral osteotomy. This having been accomplished with the humerus hyperextended, the glenoid was exposed. Arthrotomy and excision of the glenoid labrum was accomplished. Extensive synovectomy was accomplished as well. Arthrotomy of the glenoid labrum was accomplished and extensive synovectomy having been accomplished as well, the glenoid was identified and the humeral head osteotomy having been accomplished. The guide for the glenoid reaming was centered in the glenoid. The bur was used to remove osteophytes. There was a great deal of osteophyte formation. Reaming having been accomplished, the standard glenoid plate was identified. The central peg is reamed and the glenoid plate was introduced. Drilling was accomplished superiorly and inferiorly. The 22 mm screw was placed superiorly and 26 mm inferiorly. The fixation was found to be excellent. Osteophytes were debrided. Arthrotomy and synovectomy were accomplished. At this point in time, the standard glenosphere was introduced, impacted and affixed with the screw as well. This having been accomplished, attention was turned to the humeral head. Sequential broaching was carried out to a #18. Reaming was accomplished, trialing was accomplished with a +3.5 head and the reduction was found to be acceptable. The wound was thoroughly irrigated. At this point in time, the definitive humeral component was introduced. It was affixed to the proximal aspect of the humeral component. The 3.5 poly was introduced. The shoulder was replaced, rotator cuff was now repaired with the arm in approximately 10 degrees of internal rotation and forward flexion, in neutral. The rotator cuff repair was accomplished with interrupted FiberWire. The biceps tenodesis was accomplished to the rotator cuff repair. The wound was thoroughly irrigated. Closures in layers with 2-0 Quill for the deltopectoral interval, followed by 0 Vicryl, 2-0 Vicryl and zuly for skin. Hemostasis had been controlled prior to closure. Michael Reilly compression dressing and shoulder immobilizers applied. Bebeto Cook MD
== END 2018-09-28 14:25 | disposition home or self-care (01) | DRG 483 ==
LOC: H.OPSURG 06:06 → H.MEDSURG1 08:06
PROVIDERS: ADMIT Internal Medicine; ATTEND Internal Medicine
PROC: 3E0T33Z Introduction of Anti-inflammatory into Peripheral Nerves and Plexi, Percutaneous Approach (ICD-10-PCS; 2018-09-27)
PROC: 0RRK00Z Replacement of Left Shoulder Joint with Reverse Ball and Socket Synthetic Substitute, Open Approach (ICD-10-PCS; principal; 2018-09-27 10:45)
PROC: 3E0T3BZ Introduction of Anesthetic Agent into Peripheral Nerves and Plexi, Percutaneous Approach (ICD-10-PCS; 2018-09-27 10:45)
DX: M19.012 Primary osteoarthritis, left shoulder (principal); G89.29 Other chronic pain; I10 Essential (primary) hypertension; G47.30 Sleep apnea, unspecified; Z96.653 Presence of artificial knee joint, bilateral